=== PATIENT | male | born 1980 | race Caucasian/White ===

== ENCOUNTER → 2023-03-23 | Outpatient (CLI) | payer OTHER ==
--- NOTE | 2023-03-24 22:37 | MR ---
EXAMINATION TYPE: MR brain and iac wo/w con DATE OF EXAM: 03/23/2023 6:49 AM CLINICAL INDICATION:Male, 42 years old with history of H91.91 UNSPECIFIED HEARING LOSS, RIGHT EAR; PH H, COMPARISON: None TECHNIQUE: Multi planar, multi sequence imaging was performed through the brain. Specialized thin s equences were obtained through the internal auditory canals. Pre-and post gadolinium sequences were obtained. MR contrast: IV Contrast: cc 9 cc Gadavist. FINDINGS: The novak-white junctions, ventricular system, and cisterns appear unremarkable.. Midline structures show no abnormality. Diffusion-weighted imaging shows no evidence of restricted diffusion. The suscep tibility weighted images do not reveal any evidence for micro-hemorrhage. The bone marrow signal is within normal limits. Paranasal sinuses and mastoid air cells: Mild scattered paranasal sinus disease. Visualized orbits: Orbital contents are intact. After administration of gadolinium, no abnormal enhancement is seen. The internal auditory canal sequences demonstrate no significant irregularity. The 7th cranial nerve s, 8 cranial nerves, and cerebellar pontine angles appear unremarkable. After the administration mike olinium, no abnormal enhancement is seen within the internal auditory canals. Vascular loop: None. IMPRESSION: 1. No evidence of intracranial mass nor acute/subacute CVA. 2. No evidence of internal auditory canal abnormality.
== END | disposition home or self-care (01) ==
LOC: RADMRIMAIN 05:44
PROVIDERS: ATTEND Family Medicine
DX: H91.91 Unspecified hearing loss, right ear (principal)
CPT/HCPCS: 70553; A9585